=== PATIENT | male | born 1970 | race African-American/Black ===

== ENCOUNTER 2023-10-08 18:33 | Emergency (ER) | payer SELFPAY ==
[2023-10-08] MEDS ORDERED: Aspirin 325 MG TAB ONE (18:46)
[2023-10-08] MEDS ORDERED: Nitroglycerin 0.4 MG TAB 1 EACH ONE (18:46)
[2023-10-08] MEDS ORDERED: Aspirin Chewable 81 MG TAB ONE (18:49)
[2023-10-08 18:51] LABS: #Eosinphils 0.2 10x3/uL (0.0-0.5); #Monocytes 0.6 10x3/uL (0.0-1.1); #Neutrophils 3.4 10x3/uL (1.5-8.4); %Basophils 0.6 % (0.0-2.0); %Eosinophils 2.9 % (0.0-6.0); %Monocytes 8.1 % (0.0-10.0); %Neutrophils 49.1 % (40.0-75.0); Hematocrit 40.4 % (38.8-50.0); Mean Corpuscular HGB CONC 34.7 g/dL (32.0-36.0); Mean Corpuscular Hemoglobin 32.8 pg (27.0-33.0); Mean Corpuscular Volume 94.6 fl (81.2-95.1); Mean Platelet Volume 9.5 fl (7.4-10.4); Platelet Count 230 10x3/uL (150-450); RBC Distribution Width 12.4 % (11.5-14.5); Red Blood Cell (RBC) Count 4.27 10x6/uL (4.32-5.72)
[2023-10-08 19:08] LABS: ALT (SGPT) 23 U/L (8-55); AST (SGOT) 21 U/L (5-34); Alkaline Phosphatase 55 U/L (40-110); Anion Gap 16 mmol/L (10-20); BUN (Urea Nitrogen) 18 mg/dL (8.4-25.7); Bilirubin, Total 0.3 mg/dL (0.2-1.2); Calc. Creatinine Clearance 0 mL/min (70-130); Calcium 8.6 mg/dL (7.8-10.44); Carbon Dioxide 22 mmol/L (22-29); Chloride 107 mmol/L (98-107); Estimated GFR 56; Globulin 2.3 g/dL (2.4-3.5); Glucose 103 mg/dL (70-105); Magnesium 1.9 mg/dL (1.6-2.6); Potassium 3.9 mmol/L (3.5-5.1); Protein, Total 6.3 g/dL (6.0-8.3); Sodium 141 mmol/L (136-145)
[2023-10-08 19:14] LABS: Troponin I Less than 0.010 ng/mL (< 0.028)
[2023-10-08] MEDS ORDERED: HYDROcodone/Acetaminophen 5/325 mg Tablet ONE (19:34)
[2023-10-08] MEDS ORDERED: Cyclobenzaprine 10 MG TAB ONE (19:34)
[2023-10-08 19:39] LABS: SARS-CoV-2 NAA Rapid Test Not Detected (NotDetected)
== END 2023-10-08 19:45 | disposition home or self-care (01) ==
LOC: CSHERS 18:33
DX: R07.89 Other chest pain (principal); M62.830 Muscle spasm of back; M62.838 Other muscle spasm; I10 Essential (primary) hypertension; Z11.52 Encounter for screening for COVID-19
CPT/HCPCS: 71045; 80053; 83735; 83880; 84484; 85025; 93005; 93010

== ENCOUNTER 2023-11-07 09:51 | Emergency (ER) | payer SELFPAY ==
[2023-11-07 10:49] LABS: #Eosinphils 0.1 10x3/uL (0.0-0.5); #Monocytes 0.4 10x3/uL (0.0-1.1); #Neutrophils 2.5 10x3/uL (1.5-8.4); %Basophils 0.7 % (0.0-2.0); %Eosinophils 1.9 % (0.0-6.0); %Lymphocytes 29.4 % (18.0-47.0); %Monocytes 9.1 % (0.0-10.0); %Neutrophils 58.7 % (40.0-75.0); Hematocrit 35.7 % (38.8-50.0); Hemoglobin 12.7 g/dL (13.5-17.5); Mean Corpuscular HGB CONC 35.6 g/dL (32.0-36.0); Mean Corpuscular Hemoglobin 32.5 pg (27.0-33.0); Mean Corpuscular Volume 91.3 fl (81.2-95.1); Mean Platelet Volume 8.9 fl (7.4-10.4); Platelet Count 216 10x3/uL (150-450); RBC Distribution Width 12.3 % (11.5-14.5); Red Blood Cell (RBC) Count 3.91 10x6/uL (4.32-5.72); White Blood Cell (WBC) Count 4.2 10x3/uL (3.5-10.5)
[2023-11-07 11:14] LABS: Troponin I Less than 0.010 ng/mL (< 0.028)
[2023-11-07 11:21] LABS: ALT (SGPT) 17 U/L (8-55); AST (SGOT) 20 U/L (5-34); Albumin 3.9 g/dL (3.5-5.0); Alkaline Phosphatase 54 U/L (40-110); Anion Gap 11 mmol/L (10-20); BUN (Urea Nitrogen) 12 mg/dL (8.4-25.7); Bilirubin, Total 0.4 mg/dL (0.2-1.2); Calc. Creatinine Clearance 0 mL/min (70-130); Calcium 8.5 mg/dL (7.8-10.44); Carbon Dioxide 22 mmol/L (22-29); Chloride 109 mmol/L (98-107); Estimated GFR 67; Globulin 2.6 g/dL (2.4-3.5); Glucose 102 mg/dL (70-105); Potassium 3.7 mmol/L (3.5-5.1); Protein, Total 6.5 g/dL (6.0-8.3); Sodium 138 mmol/L (136-145)
== END 2023-11-07 10:55 | disposition home or self-care (01) ==
LOC: CSHERS 09:51
DX: I10 Essential (primary) hypertension (principal)
CPT/HCPCS: 71045; 80053; 83880; 84443; 84484; 85025; 93005